=== PATIENT | male | born 1985 | race Caucasian/White ===

== ENCOUNTER 2016-04-26 20:23 | Emergency (ER) | payer OTHER ==
[2016-04-26] MEDS ORDERED: LIDOCAINE 2% VISC 15 ML UDC ONE (22:21)
[2016-04-26] MEDS ORDERED: ALU/MAG/SIM 30 ML UDC ONE (22:21)
[2016-04-26] MEDS ORDERED: KETOROLAC 30 MG/ML VIAL ONE (23:39)
[2016-04-26] MEDS ORDERED: KETOROLAC 60 MG/2 ML VIAL IM ONE (23:46)
== END 2016-04-27 01:21 | disposition home or self-care (01) ==
LOC: ER 20:23
DX: R07.2 Precordial pain (principal); R55 Syncope and collapse; R42 Dizziness and giddiness; R07.89 Other chest pain; Z79.899 Other long term (current) drug therapy; Z72.0 Tobacco use
CPT/HCPCS: 36415; 70450; 71020; 80053; 82553; 84484; 85025; 85379; 93005; 96372

== ENCOUNTER 2016-05-02 20:33 | Emergency (ER) | payer OTHER ==
[2016-05-02] MEDS ORDERED: ASPIRIN 81 MG CHEW TAB ONE (20:57)
== END 2016-05-02 21:50 | disposition home or self-care (01) ==
LOC: ER 20:33
DX: R07.9 Chest pain, unspecified (principal); F39 Unspecified mood [affective] disorder; Z79.899 Other long term (current) drug therapy; F17.210 Nicotine dependence, cigarettes, uncomplicated
CPT/HCPCS: 36415; 71010; 80053; 82550; 83735; 84484; 85025; 85610; 85730; 93005